=== PATIENT | male | born 1965 | race American Indian/Alaskan Native ===

== ENCOUNTER 2018-08-07 22:52 | Emergency (ER) | payer MEDICAID ==
[2018-08-07 23:07] VITALS: BP 154/84; PULSE 78; RESP 18; TEMP 98; O2SAT 98
--- NOTE | 2018-08-08 00:18 | C.PDOC ---
History Of Present Illness 53 year old male with PMHx of chronic back pain, sciatica presents to the ED c/o generalized back pain. Patient reports symptoms worsened since yesterday, this is patient's 3rd visit in a [facility] since 08/03. Patient has been seen in this ED and at [facility] ED over the last 4 days for same. Patient was prescribed medications during his previous visits at [facility] ED, however reports not taking any. Patient reports being homeless and requesting for a place to sleep. Patient denies fever, chills, nausea, vomit, abdominal pain, rash, weakness, numbness. Time Seen by Provider: 08/07/18 23:09 Chief Complaint (Nursing): Pain, Chronic History Per: Patient History/Exam Limitations: no limitations Onset/Duration Of Symptoms: Days Current Symptoms Are (Timing): Still Present Reports Recently: Seen In ED (and [facility]) Recent travel outside of the [place]: No Additional History Per: Patient Past Medical History Reviewed: Historical Data, Nursing Documentation, Vital Signs Vital Signs: Last Vital Signs Temp 98.0 F 08/07/18 23:04 Pulse 78 08/07/18 23:04 Resp 18 08/07/18 23:04 BP 154/84 H 08/07/18 23:04 Pulse Ox 98 08/07/18 23:04 - Medical History PMH: Back Problems Denies: Chronic Kidney Disease Surgical History: No Surg Hx Family History: States: Unknown Family Hx - Social History Hx Tobacco Use: No Hx Alcohol Use: No Hx Substance Use: Yes - Immunization History Hx Tetanus Toxoid Vaccination: No Hx Influenza Vaccination: Yes Hx Pneumococcal Vaccination: No Review Of Systems Constitutional: Negative for: Fever, Chills Cardiovascular: Negative for: Chest Pain Respiratory: Negative for: Shortness of Breath Gastrointestinal: Negative for: Nausea, Vomiting, Abdominal Pain Genitourinary: Negative for: Incontinence Musculoskeletal: Positive for: Back Pain Neurological: Negative for: Weakness, Numbness, Headache, Dizziness Physical Exam - Physical Exam Appears: Non-toxic, No Acute Distress Skin: Normal Color, Warm, Dry Head: Atraumatic, Normacephalic, Abrasion (old healing in frontal scalp) Eye(s): bilateral: Normal Inspection Oral Mucosa: Moist Neck: Normal ROM, Supple Chest: Symmetrical Cardiovascular: Rhythm Regular Respiratory: Normal Breath Sounds, No Rhonchi, No Wheezing Gastrointestinal/Abdominal: Soft, No Tenderness, No Guarding, No Rebound Back: No Vertebral Tenderness, Paraspinal Tenderness (left) Extremity: Normal ROM (slight limitation due to pain), No Tenderness, Pedal Edema (minimal ), Capillary Refill (< 2 seconds), No Deformity, No Swelling (joint effusion) Extremity: Bilateral: Atraumatic, Normal Color And Temperature Pulses: Left Dorsalis Pedis: Normal, Right Dorsalis Pedis: Normal Neurological/Psych: Oriented x3, Normal Speech, Normal Cognition, Normal Motor, Normal Sensation Gait: Steady ED Course And Treatment O2 Sat by Pulse Oximetry: 98 (ON RA) Pulse Ox Interpretation: Normal Progress Note: PLan: - Motrin 600 mg PO. Patient was advised to continue taking medication given during his last visit. Patient seem ambulating in the ED without difficulty and stable for D/C. Disposition Counseled Patient/Family Regarding: Diagnosis, Need For Followup, Rx Given - Disposition Referrals: [facility] [Outside] Disposition: HOME/ ROUTINE Disposition Time: 00:17 Condition: STABLE Additional Instructions: Please follow up in clinic Continue medications prescribed at last visit Return to ER if worse Instructions: Chronic Pain (DC) Forms: [employer] (Guinean) - Clinical Impression Clinical Impression: Low back pain with bilateral sciatica, Chronic pain - PA / [employer] / Resident Statement MD/DO has reviewed & agrees with the documentation as recorded. - Scribe Statement The provider has reviewed the documentation as recorded by the Scribe Jose Cruz Kirk All medical record entries made by the Scribe were at my direction and personally dictated by me. I have reviewed the chart and agree that the record accurately reflects my personal performance of the history, physical exam, medical decision making, and the department course for this patient. I have also personally directed, reviewed, and agree with the discharge instructions and disposition.
[2018-08-08] MEDS ORDERED: Bacitracin 500 Units/gm Oint Foilpak UD ONE (00:23)
== END 2018-08-08 00:36 | disposition home or self-care (01) ==
LOC: C.ER 22:52
DX: M54.42 Lumbago with sciatica, left side (principal); M54.41 Lumbago with sciatica, right side; G89.29 Other chronic pain